=== PATIENT | male | born 1975 | race Caucasian/White ===

== ENCOUNTER → 2024-08-29 | Outpatient (BNVA) | payer BC, SELFPAY | END | disposition home or self-care (01) | PROVIDERS: PCP Internal Medicine; Referring Provider Internal Medicine; Visit Provider Urology | DX: N40.0 Benign prostatic hyperplasia without lower urinary tract symptoms (principal); Z87.891 Personal history of nicotine dependence | CPT/HCPCS: 81003; 99212; G0463 ==